=== PATIENT | female | born 1970 | race Caucasian/White ===

== ENCOUNTER 2025-01-24 12:47 | Outpatient (CLI) | payer OTHER, SELFPAY ==
--- OUTSIDE RECORDS SUMMARY | 2024-12-06 17:34 | XMS_ITS | Encounter Summary ---
Author Organization [facility] Address [address] [place] [id number] Care Team Providers Care Behavioral Science Chair Name Role Phone Karlo Lujan MD Primary Care Provider [phone] Reason for Visit * Reason Comments Foot Swelling Encounter Details Date Type Department Care Team (Late st Contact Info) Description 12/06/2024 5:34 PM EDT - 12/06/2024 8:53 PM EDT Emergency [facility] [address] [place] [address] Cash Paez MD [address] COUNT INCLUDES THE [facility] [place] [address] Olecranon bursitis of right elbow (Primary Dx); Cellulitis of right foot Discharge Disposition: Home or Self Care Social History Tobacco Use Types Packs/Day Years Used Date Smoking Tobacco: Never Smokeless Tobacco: Never Alcohol Use Standard Drinks/Week Comments Yes 1 (1 standard drink = 0.6 oz pur e alcohol) SOCIAL [facility] Utilities Answer Date Recorded In the past 12 months has [employer], gas, oil, or water [employer] threatened to shut off services in your home? No 12/09/2023 AUDIT-C Answer Date Recorded Q1: How often do you have a drink containing alcohol? Never 12/08/2023 Q2: How many drinks containi ng alcohol do you have on a typical day when you are drinking? Patient does not drink Q3: How often do you have si x or more drinks on one occasion? Never 12/08/2023 Overall Financial Resource Strain (CARDIA) Answe r Date Recorded How hard is it for you to pa y for the very basics like food, housing, medical care, and heating? Not hard at all 12/09/2023 [facility] Occupat ional Health - Occupational Stress Questionnaire Answer Date Recorded Do you feel stress - tense, restless, nervous, or anxious, or unable to sleep at night because your mind is troubled all the time - these days? Only a little 12/09/2023 Exercise Vital Sign Answer Date Recorde d On average, how many days pe r week do you engage in moderate to strenuous exercise (like a brisk walk)? 3 days 12/09/2023 On average, how many minutes do you engage in exercise at this level? 30 min 12/09/2023 Hunger Vital Sign Answer Date Recorded Within the past 12 months, y ou worried that your food would run out before you got the money to buy more. Never true 12/09/19 24 Within the past 12 months, t he food you bought just didn't last and you didn't have money to get more. Never true 12/09/2023 PRAPARE - Transportation Answer Date Re corded In the past 12 months, has l ack of transportation kept you from medical appointments or from getting medications? No 11/17 In the past 12 months, has l ack of transportation kept you from meetings, work, or from getting things needed for daily living? No 12/09/2023 Abuse Screen Answer Date Recorded Feels Unsafe at Home or Work/School no 12/06/2024 Feels Threatened by Someone no 11/17 Does Anyone Try to Keep You From Having Contact with Others or Doing Things Outside Your Home? no 12/06/2024 Physical Signs of Abuse Present no 12/06/2024 Housing Stability Answer Date Recorded Current Living Arrangements home 11/17 Potentially Unsafe Housing Conditions none 12/09/2023 Family and Community Support Answer Yemi e Recorded If for any reason you need h elp with day-to-day activities such as bathing, preparing meals, shopping, managing finances, etc., do you get the help you need? I don't need any help 12/09/2023 How often do you feel lonely or isolated from those around you? Never 12/09/2023 Employment Answer Date Recorded Do you want help finding or keeping work or a job? I do not need or want help 12/09/2023 Disabilities Answer Date Recorded Difficulty Concentrating, Remembering or Making Decisions no 12/08/2023 Difficulty Managing Errands Independently no 12/08/2023 Education Answer Date Recorded Do you want help with school or training? For example, starting or completing job training or getting a high school diploma, GED or equivalent No 12/09/2023 Preferred Language [place] 12/09/2023 PHQ-2 Answer Date Recorded Patient Health Questionnaire-2 Score 1 07/20/2024 Sex and Gender Information Value Date Recorded Sex Assigned at Male 10/14/2024 7:51 PM EDT Legal Sex Male 10:31 AM EDT Gender Identity Not on file Sexual Orientation Straight 10/14/2024 7: 51 PM EDT documented as of this encounter Last Filed Vital Signs Vital Sign Reading Time Taken Comments Blood Pressure 117/82 12/06/2024 5:53 PM EDT Pulse 70 12/06/2024 8:00 PM EDT Temperature 36.9 C (98.4 F) 12/06/2024 3:03 PM EDT Respiratory Rate 16 12/06/2024 5:53 PM EDT Oxygen Saturation 94% 12/06/2024 8:00 PM EDT Inhaled Oxygen Concentration - - Weight 111 kg (245 lb) 12/06/2024 3:03 PM EDT Height 180.3 cm (5' 11 ) 12/06/2024 3:03 PM EDT Body Mass Index 34.17 12/06/2024 3:03 PM EDT documented in this encounter Functional Status * Calculated C-SSRS Risk Score (Lifetime/Recent) Answer Date of Assessment Author No Risk Indicated 12/06/2024 3:05 PM EDT Jace Thomas RN * Orange Suicide Severity Rating Scale (Screener/Recent Self-Report) Question Answer Date of Assessment Author 1. Wish to be (Past 1 Month) No 025 3:05 PM EDT Jace Thomas, RN 2. Non-Specific Active Suici augusto Thoughts (Past 1 Month) No 12/06/2024 3:05 PM EDT Jace Thomas, RN 6. Suicidal Behavior (Lifetime) No 07/21/202 5 3:05 PM EDT Jace Thomas RN documented as of this encounter Discharge Instructions * Discharge Instructions* Cash Paez MD - 12/06/2024 7:16 PM EDT Apply ice to areas of pain. Take antibiotics as prescribed. Follow-up with PCP for recheck in 1 week. * Attachments The following attachments cannot be sent through Care Everywhere. * Elbow Bursitis ([place]) * Cellulitis Adult ([place]) documented in this encounter Medications at Time of Discharge nitroglycerin (NITROSTAT) 0.[address] 1 tablet under the tongue Every 5 (Five) Minutes As Needed for Chest Pain (Systolic BP Greater Than 100). Take no more than 3 doses in 15 minutes. 25 tablet 12 12/16/2023 12:56 PM EDT 12/16/2023 Aspirin Low Dose 81 MG EC tablet TAKE 1 TABLET BY MOUTH DAILY 90 tablet 3 11/29/2024 clopidogrel (PLAVIX) 75 MG tablet Take 1 tablet by mouth Daily. 90 tablet 3 03/08/2024 Evolocumab (Repatha SureClick) solution auto-injector SureClick injection Inject 1 mL under the skin into the appropriate area as directed Every 14 (Fourteen) Days. 6 mL 3 12/09/2024 9:55 AM EDT 09/20/2024 Ferrous Sulfate ER 45 MG tablet controlled-relea se Take 1 tablet by mouth Daily. furosemide (LASIX) 20 MG tablet TAKE 1 TABLET BY MOUTH DAILY 90 tablet 1 10/18/2024 metoprolol tartrate (LOPRESSOR) 25 MG tabletIndication s:Hypertension, essential Take 0.5 tablets by mouth Every 12 (Twelve) Hours. 90 tablet 3 04/21/2024 rosuvastatin (CRESTOR) 40 MG tablet Take 1 tablet by mouth Every Night. 90 tablet 3 03/08/2024 tamsulosin (FLOMAX) 0.4 MG capsule 24 hr capsule 08/11/2024 cephalexin (KEFLEX) 500 MG capsule Take 1 capsule by mouth 4 (Four) Times a Day for 7 days. 28 capsule 12/06/2024 documented as of this encounter ED Notes * Cash Paez MD - 12/06/2024 3:16 PM EDT Subjective History of Present Illness 55-year-old male who presents with a complaint of right elbow pain and swelling to the right forearm and arm and right foot pain and redness. The patient reports that 8 days ago he noticed an area ofswelling over the olecranon of his right arm. The following day he noticed significant swelling andbruising that extended into his right forearm and into the medial aspect of his right arm. That hascontinued to change. His color is over the last 8 days. He reports that he can range his joint normally without any restriction or significant pain. However when he puts pressure directly over the olecranon he does express pain. He denies trauma to that area. He does take accommodation of Plavix and aspirin but does not take any anticoagulation. He also began to have pain to his right foot and now has some swelling and redness over the dorsal distal aspect of his right foot. This developed roughly 2 to 3 days ago. He does admit that he has been outside as it is currently summer and he was recently at a pool alliance party. He does report some other bug bites over his lower extremities and potentially may have had a bug bite to the dorsal right foot. He likewise denies trauma to his right foot. He is able to stand and ambulate without difficulty. He denies fever or chills or other systemic symptoms of infection. No other acute complaints Review of Systems Constitutional: Negative for chills, fatigue and fever. HENT: Negative for congestion, ear pain, postnasal drip, sinus pressure and sore throat. Eyes: Negative for pain, redness and visual disturbance. Respiratory: Negative for cough, chest tightness and shortness of breath. Cardiovascular: Negative for chest pain, palpitations and leg swelling. Gastrointestinal: Negative for abdominal pain, anal bleeding, blood in stool, diarrhea, nausea and vomiting. Endocrine: Negative for polydipsia and polyuria. Genitourinary: Negative for difficulty urinating, dysuria, frequency and urgency. Musculoskeletal: Positive for arthralgias. Negative for back pain and neck pain. Skin: Positive for color change and wound. Negative for pallor and rash. Allergic/Immunologic: Negative for environmental allergies and immunocompromised state. Neurological: Negative for dizziness, weakness and headaches. Hematological: Negative for adenopathy. Psychiatric/Behavioral: Negative for confusion, self-injury and suicidal ideas. The patient is not nervous/anxious. All other systems reviewed and are negative. Past Medical History: Diagnosis Date Arthritis Asthma Benign prostatic hyperplasia Brain concussion 1989???kristine Multiple times hitting my head growing up Colon polyp Coronary artery disease COVID Eating disorder GERD (gastroesophageal reflux disease) 12/11/2023 Heart valve disease Hiatal hernia History of medical problems May 2021 Dizziness/Vertigo HL (hearing loss) Hypertension, essential 01/15/2024 Low back pain Lumbosacral disc disease [id number] Myocardial infarction 12/08/2023 Obesity Sleep apnea Allergies Allergen Reactions Azithromycin Rash and Other (See Comments) Past Surgical History: Procedure Laterality Date APPENDECTOMY 2006 BACK SURGERY CARDIAC CATHETERIZATION N/A 12/08/2023 Procedure: Left Heart Cath; Surgeon: Martin Mon IV, MD; Location: [facility]; Service: Cardiovascular; Laterality: N/A; CARDIAC CATHETERIZATION N/A 12/08/2023 Procedure: Optical Coherence Tomography; Surgeon: Martin Mon IV, MD; Location: [facility]; Service: Cardiovascular; Laterality: N/A; CARDIAC CATHETERIZATION N/A 12/08/2023 Procedure: Stent MAYKEL coronary; Surgeon: Martin Mon IV, MD; Location: [facility]; Service: Cardiovascular; Laterality: N/A; CARDIAC SURGERY COLONOSCOPY CORONARY ARTERY BYPASS GRAFT N/A 12/10/2023 Procedure: MEDIAN STERNOTOMY, CORONARY ARTERY BYPASS GRAFTING X 3 UTILIZING THE LEFT INTERNAL MAMMARY ARTERY, ENDOSCOPIC VEIN HARVEST OF THE RIGHT GREATER SAPHENOUS VEIN; Surgeon: Tunde Skelton MD; Location: [facility] OR; Service: Cardiothoracic; Laterality: N/A; CORONARY STENT PLACEMENT KNEE SURGERY Right 1989 [place] INJECTION Family History Problem Relation Age of Onset No Known Problems Mother COPD Father Post-traumatic stress disorder Brother Arthritis Brother Breast cancer Maternal Grandmother Cancer Maternal Grandmother Breast Cancer Emphysema Maternal Grandfather Heart attack Maternal Grandfather Heart disease Maternal Grandfather Cancer Paternal Grandmother No Known Problems Paternal Grandfather Asthma Son Social History Socioeconomic History Marital status: Number of children: 2 Tobacco Use Smoking status: Never Smokeless tobacco: Never Vaping Use Vaping status: Never Used Substance and Sexual Activity Alcohol use: Yes Alcohol/week: 1.0 standard drink of alcohol Types: 1 Drinks containing 0.5 oz of alcohol per week Comment: SOCIAL Drug use: No Sexual activity: Not Currently Partners: Female Comment: had Hysterectomy Objective Physical Exam Vitals and nursing note reviewed. Constitutional: General: He is not in acute distress. Appearance: Normal appearance. He is well-developed. He is not toxic-appearing or diaphoretic. HENT: Head: Normocephalic and atraumatic. Right Ear: External ear normal. Left Ear: External ear normal. Nose: Nose normal. Eyes: General: Lids are normal. Pupils: Pupils are equal, round, and reactive to light. Neck: Trachea: No tracheal deviation. Cardiovascular: Rate and Rhythm: Normal rate and regular rhythm. Pulses: No decreased pulses. Heart sounds: Normal heart sounds. No murmur heard. No friction rub. No gallop. Pulmonary: Effort: Pulmonary effort is normal. No respiratory distress. Breath sounds: Normal breath sounds. No decreased breath sounds, wheezing, rhonchi or rales. Abdominal: General: Bowel sounds are normal. Palpations: Abdomen is soft. Tenderness: There is no abdominal tenderness. There is no guarding or rebound. Musculoskeletal: General: No deformity. Normal range of motion. Right elbow: Swelling present. Tenderness present. Cervical back: Normal range of motion and neck supple. Right foot: Swelling and tenderness present. No bony tenderness. Comments: Mild tenderness over the olecranon bursa itself. No redness, no increased skin warmth. There swelling with region of various colors along the medial right forearm and medial right arm. No erythema, no signs of cellulitis or secondary infection. Swelling mild redness and mild warmth to the dorsal right foot. No bony deformity or focal bony pain. Normal pulses of the posterior tibial and dorsalis pedis artery of the right foot. Lymphadenopathy: Cervical: No cervical adenopathy. Skin: General: Skin is warm and dry. Findings: No rash. Neurological: Mental Status: He is alert and oriented to person, place, and time. Cranial Nerves: No cranial nerve deficit. Sensory: No sensory deficit. Psychiatric: Speech: Speech normal. Behavior: Behavior normal. Thought Content: Thought content normal. Judgment: Judgment normal. Procedures ED Course Medical Decision Making Differential includes olecranon bursitis, septic bursitis, right foot insect bite, cellulitis, other unspecified etiology. Labs show normal white count and H&H, normal kidney function, normal D-dimer effectively rulingout DVT or PE. X-ray of the right elbow acute myself is negative for acute fracture or dislocation. X-ray of the right foot independently interpreted by me is negative for acute fracture. The patient will be advised to apply ice to both the right foot and the right elbow. Discharged with a course antibiotics for coverage of possible cellulitis secondary to possible insect bite on the right foot. Advised to follow-up with primary care physician for recheck in 1 week and return to the ER with any further concern. Problems Addressed: Cellulitis of right foot: complicated acute illness or injury with systemic symptoms Olecranon bursitis of right elbow: complicated acute illness or injury with systemic symptoms Amount and/or Complexity of Data Reviewed External Data Reviewed: labs and radiology. Labs: ordered. Decision-making details documented in ED Course. Radiology: ordered and independent interpretation performed. Decision-making details documented in ED Course. Risk Prescription drug management. Final diagnoses: Olecranon bursitis of right elbow Cellulitis of right foot ED Disposition ED Disposition ED Disposition Discharge Condition Stable Comment -- Karlo Lujan MD [address] [place] [address] In 1 week Medication List New Prescriptions cephalexin 500 MG capsule Commonly known as: KEFLEX Take 1 capsule by mouth 4 (Four) Times a Day for 7 days. Where to Get Your Medications These medications were sent to [facility] [id number] - [place], [place] - [address] [facility] [address] - [phone] - [phone] FX [address] [facility] [place] [facility] [id number] cephalexin 500 MG capsule Cash Paez MD 12/07/24 1340 documented in this encounter Plan of Treatment Upcoming Encounters Date Type Department Care Team (Late st Contact Info) Description 02/03/2025 1:30 PM EDT Office Visit [facility] [address] [place] [address] Aracelis Evans, DO [address] [facility] Strong [id number] 06/06/2025 3:15 PM EST Office Visit [facility] [address] [facility] [address] Tunde Dodd MD [address] [facility] [address] [place] [address] documented as of this encounter Goals Goal Patient Goal Type Associated Problems Recent Progress Patient-Stated? Author Specialty Pharmacy General Goal General No Su Vital, PharmD Note: LDL Goal < 50 mg/dL Lab Results Component Value Date LDL 60 07/20/2024 LDL 131 (H) 12/08/2023 documented as of this encounter Procedures Procedure Name Priority Date/Time Associated Diagnosis Comments CBC WITH AUTO DIFFERENTIAL STAT 12/06/2024 5:51 PM EDT APTT STAT 12/06/2024 5:51 PM EDT PROTIME-INR STAT 12/06/2024 5:51 PM EDT D-DIMER, QUANTITATIVE STAT 12/06/2024 5:51 PM EDT CBC AND DIFFERENTIAL STAT 12/06/2024 5:51 PM EDT COMPREHENSIVE METABOLIC PANEL STAT 12/06/2024 5:51 PM EDT XR ELBOW 3+ VW RIGHT STAT 12/06/2024 3:42 PM EDT XR FOOT 3+ VW RIGHT STAT 12/06/2024 3 :41 PM EDT documented in this encounter Results * (ABNORMAL) aPTT (12/06/2024 5:51 PM EDT) PTT 32.2(L) 60.0 - 90.0 seconds 12/06/2024 6:29 PM EDT [facility] Blood Venipuncture / Unknown 12/06/2024 5:51 PM EDT 12/06/2024 6:03 PM EDT Narrative [facility] - 12/06/2024 6:29 PM EDT PTT = The equivalent PTT values for the therapeutic range of heparin levels at 0.3 to 0.5 U/ml are 60 to 70 seconds. Cash Paez MD LAB BLOOD ORDERABLES Lynda l Result Performing Organization Address City/[facility]/ZIP Co de Phone Number [facility]
[address] [place] [address], * Protime-INR (12/06/2024 5:51 PM EDT) Protime 13.9 12.2 - 15.3 Seconds 12/06/2024 6:29 PM EDT [facility] INR 1.01 0.89 - 1.12 12/06/2024 6:29 PM EDT [facility] Blood Venipuncture / Unknown 12/06/2024 5:51 PM EDT 12/06/2024 6:03 PM EDT Cash Paez MD LAB BLOOD ORDERABLES Lynda l Result [facility]
[address] [place] [address], * (ABNORMAL) CBC Auto Differential (12/06/2024 5:51 PM EDT) WBC 5.31 3.40 - 10.80 10*3/mm3 12/06/2024 6:09 PM EDT [facility] RBC 5.13 4.14 - 5.80 10*6/mm3 12/06/2024 6:09 PM EDT [facility] Hemoglobin 14.3 13.0 - 17.7 g/dL 12/06/2024 6:09 PM EDT [facility] Hematocrit 43.4 37.5 - 51.0 % 12/06/2024 6:09 PM EDT [facility] MCV 84.6 79.0 - 97.0 fL 12/06/2024 6:09 PM EDT [facility] MCH 27.9 26.6 - 33.0 pg 12/06/2024 6:09 PM EDT [facility] MCHC 32.9 31.5 - 35.7 g/dL 12/06/2024 6:09 PM EDT [facility] RDW 14.9 12.3 - 15.4 % 12/06/2024 6:09 PM EDT [facility] RDW-SD 45.5 37.0 - 54.0 fl 12/06[facility]24 [facility] MPV 10.2 6.0 - 12.0 fL 12/06/2024 6:09 PM EDT [facility] Platelets 228 140 - 450 10*3/mm3 12/06/2024 6:09 PM EDT [facility] Neutrophil % 63.2 42.7 - 76.0 % 12/06/2024 6:09 PM EDT [facility] Lymphocyte % 22.2 19.6 - 45.3 % 12/06/2024 6:09 PM EDT [facility] Monocyte % 10.2 5.0 - 12.0 % 12/06/2024 6:09 PM EDT [facility] Eosinophil % 3.2 0.3 - 6.2 % 12/06/2024 6:09 PM EDT [facility] Basophil % 0.6 0.0 - 1.5 % 12/06/2024 6:09 PM EDT [facility] Immature Grans % 0.6(H) 0.0 - 0.5 % 12/06/2024 6:09 PM EDT [facility] Neutrophils, Absolute 3.36 1.70 - 7.00 10*3/mm3 12/06/2024 6:09 PM EDT [facility] Lymphocytes, Absolute 1.18 0.70 - 3.10 10*3/mm3 12/06/2024 6:09 PM EDT [facility] Monocytes, Absolute 0.54 0.10 - 0.90 10*3/mm3 12/06/2024 6:09 PM EDT [facility] Eosinophils, Absolute 0.17 0.00 - 0.40 10*3/mm3 12/06/2024 6:09 PM EDT [facility] Basophils, Absolute 0.03 0.00 - 0.20 10*3/mm3 12/06/2024 6:09 PM EDT [facility] Immature Grans, Absolute 0.03 0.00 - 0.05 10*3/mm3 12/06/2024 6:09 PM EDT [facility] nRBC 0.0 0.0 - 0.2 /100 WBC 12/06/2024 6:09 PM EDT [facility] Blood Venipuncture / Unknown 12/06/2024 5:51 PM EDT 12/06/2024 6:02 PM EDT Venukaiser hayward King Paez MD LAB BLOOD ORDERABLES Lynda l Result [facility]
[address] [place] [address], * D-dimer, Quantitative (12/06/2024 5:51 PM EDT) [facility] D-Dimer, Quantitative 0.31 0.00 - 0.52 MCGFEU/mL 12/06/2024 6:29 PM EDT [facility] Blood Venipuncture / Unknown 12/06/2024 5:51 PM EDT 12/06/2024 6:03 PM EDT Narrative [facility] - 12/06/2024 6:29 PM EDT According to the assay production mechanic's published package insert, a normal (<0.50 MCGFEU/mL) D-dimer result in conjunction with a non-high clinical probability assessment, excludes deep vein thrombosis (DVT) and pulmonary embolism (PE) with high sensitivity. D-dimer values increase with age and this can make VTE exclusion of an older population difficult. To address this, the [employer], based on best available evidence and recent guidelines, recommends that clinicians use age-adjusted D-dimer thresholds in patients greater than 50 years of age with: a) a low probability of PE who do not meet all Pulmonary Embolism Rule Out Criteria, or b) in those with intermediate probability of PE. The formula for an age-adjusted D-dimer cut-off is age/100 . For example, a 60 year old patient would have an age-adjusted cut-off of 0.60 MCGFEU/mL and an 80 year old 0.80 MCGFEU/mL. Cash Paez MD LAB BLOOD ORDERABLES Lynda pinedo Result [facility]
[address] [phone] * (ABNORMAL) Comprehensive Metabolic Panel (12/06/2024 5:51 PM EDT) Glucose 113(H) 65 - 99 mg/dL 12/06/2024 6:29 PM EDT [facility] BUN 13.2 6.0 - 20.0 mg/dL 12/06/2024 6:29 PM EDT [facility] Creatinine 1.10 0.76 - 1.27 mg/dL 12/06/2024 6:29 PM EDT [facility] Sodium 140 136 - 145 mmol/L 12/06/2024 6:29 PM EDT [facility] Potassium 3.7 3.5 - 5.2 mmol/L 12/06/2024 6:29 PM EDT [facility] Chloride 103 98 - 107 mmol/L 12/06/2024 6:29 PM EDT [facility] CO2 26.1 22.0 - 29.0 mmol/L 12/06/2024 6:29 PM EDT [facility] Calcium 9.0 8.6 - 10.5 mg/dL 12/06/2024 6:29 PM EDT [facility] Total Protein 7.2 6.0 - 8.5 g/dL 12/06/2024 6:29 PM EDT [facility] Albumin 4.4 3.5 - 5.2 g/dL 12/06/2024 6:29 PM EDT [facility] ALT (SGPT) 24 1 - 41 U/L 12/06/2024 6:29 PM EDT [facility] AST (SGOT) 24 1 - 40 U/L 12/06/2024 6:29 PM EDT [facility] Alkaline Phosphatase 106 39 - 117 U/L 12/06/2024 6:29 PM EDT [facility] Total Bilirubin 1.0 0.0 - 1.2 mg/dL 12/06/2024 6:29 PM EDT [facility] Globulin 2.8 gm/dL 12/06/2024 6:29 PM EDT [facility] Comment:Calculated Result A/G Ratio 1.6 g/dL 12/06/2024 6:29 PM T [facility] BUN/Creatinine Ratio 12.0 7.0 - 25.0 12/06/2024 6:29 PM T [facility] Anion Gap 10.9 5.0 - 15.0 mmol/L 12/06/2024 6:29 PM T [facility] eGFR 80.8 >60.0 mL/min/1.7 3 12/06/2024 6:29 PM T [facility] Blood Venipuncture / Unknown 12/06/2024 5:51 PM EDT 12/06/2024 6:03 PM EDT [facility] - 12/06/2024 6:29 PM EDT GFR Categories in Chronic Kidney Disease (CKD) GFR Category GFR (mL/min/1.73) Interpretation G1 90 or greater Normal or high (1) G2 60-89 Mild decrease (1) G3a 45-59 Mild to moderate decrease G3b 30-44 Moderate to severe decrease G4 15-29 Severe decrease G5 14 or less Kidney failure (1)In the absence of evidence of kidney disease, neither GFR category G1 or G2 fulfill the criteria for CKD. eGFR calculation 2020 CKD-EPI creatinine equation, which does not include race as a factor Cash Paez MD LAB BLOOD ORDERABLES Lynda khris Result [facility]
[address] [place] [address], * XR Elbow 3+ View Right (12/06/2024 3:42 PM EDT) Anatomical Region Laterality Modality Upper Extremities, Elbow Right Radiogr aphic Imaging 12/06/2024 3:44 PM EDT Impressions 12/06/2024 3:50 PM EDT 1. Dorsal soft tissue swelling of the foot but no visible underlying bony trauma. If there is clinical concern for occult fracture or significant internal derangement, foot MRI could be considered. 2. Small superficial calcification or possibly skin foreign body of the great toe as noted. RIGHT ELBOW: Bones of the right elbow joint appear anatomically aligned and intact. Joint spaces are well-maintained. No fracture, avulsion or foreign body is seen. No plain film evidence of effusion is identified. Although somewhat subjective, the lateral image suggests increasingly dense and thickened soft tissues dorsal to the olecranon, with no other visible associated abnormality. IMPRESSION: 1. No evidence of acute or healing bony trauma of the right elbow. No visible effusion. 2. Increased density and thickened appearance of the soft tissues dorsal to the elbow, potentially bruising or edema. Please correlate with patient's symptoms. Electronically Signed: Buster Hernandez MD 12/06/2024 3:50 PM EDT Workstation ID: [id number] Narrative 12/06/2024 3:50 PM EDT XR FOOT 3+ VW RIGHT, XR ELBOW 3+ VW RIGHT Date of Exam: 12/06/2024 3:15 PM EDT Indication: right foot pain Comparison: None available. Findings: History indicates overuse playing volleyball. Persistent bruising and swelling since November 27. RIGHT FOOT: Lateral view appears to show some dorsal soft tissue swelling of the distal forefoot with no apparent foreign body or soft tissue air. Underlying bony structures appear anatomically aligned and intact. In particular, no evidence of metatarsal fracture or changes suggestive of stress fracture are seen. A punctate density seen on the skin of the tip of the great toe may be external to the patient or may represent a small superficial calcification of the distal nailbed. Procedure Note Buster Hernandez MD - 12/06/2024 XR FOOT 3+ VW RIGHT, XR ELBOW 3+ VW RIGHT Date of Exam: 12/06/2024 3:15 PM EDT Indication: right foot pain Comparison: None available. Findings: History indicates overuse playing volleyball. Persistent bruising andswelling since November 27. RIGHT FOOT: Lateral view appears to show some dorsal soft tissue swellingof the distal forefoot with no apparent foreign body or soft tissue air.Underlying bony structures appear anatomically aligned and intact. Inparticular, no evidence of metatarsal fracture or changes suggestive of stress fracture are seen. A punctatedensity seen on the skin of the tip of the great toe may be external tothe patient or may represent a small superficial calcification of thedistal nailbed. IMPRESSION: 1. Dorsal soft tissue swelling of the foot but no visible underlying bonytrauma. If there is clinical concern for occult fracture or significantinternal derangement, foot MRI could be considered. 2. Small superficial calcification or possibly skin foreign body of thegreat toe as noted. RIGHT ELBOW: Bones of the right elbow joint appear anatomically alignedand intact. Joint spaces are well-maintained. No fracture, avulsion orforeign body is seen. No plain film evidence of effusion is identified.Although somewhat subjective, the lateral image suggests increasingly dense and thickened soft tissuesdorsal to the olecranon, with no other visible associated abnormality. IMPRESSION: 1. No evidence of acute or healing bony trauma of the right elbow. Novisible effusion. 2. Increased density and thickened appearance of the soft tissues dorsalto the elbow, potentially bruising or edema. Please correlate withpatient's symptoms. Electronically Signed: Buster Hernandez MD 12/06/2024 3:50 PM EDT Workstation ID: [id number] Cash Paez MD IMG DIAGNOSTIC IMAGING OR DERABLES Final Result * XR Foot 3+ View Right (12/06/2024 3:41 PM EDT) Anatomical Region Laterality Modality Lower Extremities, Foot Right Radiogra [facility] 12/06/2024 3:44 PM EDT Impressions 12/06/2024 3:50 PM EDT 1. Dorsal soft tissue swelling of the foot but no visible underlying bony trauma. If there is clinical concern for occult fracture or significant internal derangement, foot MRI could be considered. 2. Small superficial calcification or possibly skin foreign body of the great toe as noted. RIGHT ELBOW: Bones of the right elbow joint appear anatomically aligned and intact. Joint spaces are well-maintained. No fracture, avulsion or foreign body is seen. No plain film evidence of effusion is identified. Although somewhat subjective, the lateral image suggests increasingly dense and thickened soft tissues dorsal to the olecranon, with no other visible associated abnormality. IMPRESSION: 1. No evidence of acute or healing bony trauma of the right elbow. No visible effusion. 2. Increased density and thickened appearance of the soft tissues dorsal to the elbow, potentially bruising or edema. Please correlate with patient's symptoms. Electronically Signed: Buster Hernandez MD 12/06/2024 3:50 PM EDT Workstation ID: [id number] Narrative 12/06/2024 3:50 PM EDT XR FOOT 3+ VW RIGHT, XR ELBOW 3+ VW RIGHT Date of Exam: 12/06/2024 3:15 PM EDT Indication: right foot pain Comparison: None available. Findings: History indicates overuse playing volleyball. Persistent bruising and swelling since November 27. RIGHT FOOT: Lateral view appears to show some dorsal soft tissue swelling of the distal forefoot with no apparent foreign body or soft tissue air. Underlying bony structures appear anatomically aligned and intact. In particular, no evidence of metatarsal fracture or changes suggestive of stress fracture are seen. A punctate density seen on the skin of the tip of the great toe may be external to the patient or may represent a small superficial calcification of the distal nailbed. Procedure Note Buster Hernandez MD - 12/06/2024 XR FOOT 3+ VW RIGHT, XR ELBOW 3+ VW RIGHT Date of Exam: 12/06/2024 3:15 PM EDT Indication: right foot pain Comparison: None available. Findings: History indicates overuse playing volleyball. Persistent bruising andswelling since November 27. RIGHT FOOT: Lateral view appears to show some dorsal soft tissue swellingof the distal forefoot with no apparent foreign body or soft tissue air.Underlying bony structures appear anatomically aligned and intact. Inparticular, no evidence of metatarsal fracture or changes suggestive of stress fracture are seen. A punctatedensity seen on the skin of the tip of the great toe may be external tothe patient or may represent a small superficial calcification of thedistal nailbed. IMPRESSION: 1. Dorsal soft tissue swelling of the foot but no visible underlying bonytrauma. If there is clinical concern for occult fracture or significantinternal derangement, foot MRI could be considered. 2. Small superficial calcification or possibly skin foreign body of thegreat toe as noted. RIGHT ELBOW: Bones of the right elbow joint appear anatomically alignedand intact. Joint spaces are well-maintained. No fracture, avulsion orforeign body is seen. No plain film evidence of effusion is identified.Although somewhat subjective, the lateral image suggests increasingly dense and thickened soft tissuesdorsal to the olecranon, with no other visible associated abnormality. IMPRESSION: 1. No evidence of acute or healing bony trauma of the right elbow. Novisible effusion. 2. Increased density and thickened appearance of the soft tissues dorsalto the elbow, potentially bruising or edema. Please correlate withpatient's symptoms. Electronically Signed: Buster Hernandez MD 12/06/2024 3:50 PM EDT Workstation ID: [id number] Cash Paez MD IMG DIAGNOSTIC IMAGING OR DERABLES Final Result documented in this encounter Visit Diagnoses Diagnosis Olecranon bursitis of right elbow- Primary Cellulitis of right foot documented in this encounter Administered Medications Inactive Administered Medications - up to 3 most recent administrations Medication Order MAR Action Action Date Dose Rate Site sodium chloride 0.9 % flush 10 mL 10 mL, Intravenous, As Needed, Line Care, Starting on 12/06/24 at 1509 documented in this encounter Active and Recently Administered Medications Times are shown in EDT. PRN Medication Order 12/04/2024 12/05/2024 12/06/2024 sodium chloride 0.9 % flush 10 mL(Linked Group 1) 10 mL, Intravenous, As Needed, Line Care, Starting on Fri12/06/24 at 1509 Linked Groups Order Group 1: Insert Peripheral IV (CANCELED) STAT, Once, On Fri12/06/24 at 1510, For 1 occurrence And sodium chloride 0.9 % flush 10 mLJump to med 10 mL, Intravenous, As Needed, Line Care, Starting on Fri12/06/24 at 1509 documented in this encounter Additional Health Concerns Infection Onset Date Last Indicated Resolved Time COVID (History) 04/30/2020 05/18/2020 documented as of this encounter Care Teams Behavioral Science Chair Relationship Specialty Start Date End Date Karlo Lujan MD [address] [place] [address] PCP - General Family Medicine 01/15/24 documented as of this encounter
--- NOTE | 2025-01-24 | CA_ITS ---
APPROVED REPORT EXAM: Comprehensive 2D, Doppler, and color-flow Echocardiogram Inspector Plug Seam: Kathleen Sosa CRT Ht: 5 ft 11 in Wt: 240lbs BSA: 2.28 BP: 120/78 mmHg Indications: CAD, CABG x3 2023 2D Dimensions LA Volume 49.80 mL LA Volume Index 21.40 mL/m2 (M/F) 16-34 M-Mode Dimensions RVDd 3.88 cm (0.9-2.6) LA Diam 3.34 cm (1.9-4.0) LVDd 4.98 cm (3.5-5.7) LVDs 3.69 cm (3.5-5.7) IVSd 1.48 cm (0.6-1.1) PWd 1.22 cm (0.6-1.1) EF (Teich) 50.60% FS 25.90% EDV (Teich) 117.10 mL ESV (Teich) 57.80 mL LV Diastology E Decel Time 180 (160-240 msec) E/A Ratio 1.30 MED A' 10.00 cm/s LAT A' 11.00 cm/s Aortic Valve AO Peak GR. 5.30 mmHg Mitral Valve MV A Velocity 57.0 (40-130 cm/s) E/A Ratio 1.30 Pulmonary Valve PV Peak Velocity 116.0 (50-150 cm/s) Tricuspid Valve TR P. Velocity 256.00 cm/s RAP Estimate 10.00 mmHg RVSP 36.30 mmHg Left Ventricle The left ventricle is normal size. Left ventricular systolic function is normal. The left ventricular ejection fraction is within the normal range. Proximal septal thickening is present. There is normal LV segmental wall motion. The left ventricular diastolic function is normal. LVEF is 55%. Right Ventricle The right ventricle is mildly dilated. The right ventricular systolic function is normal. Atria The left atrium size is normal. The right atrium size is normal. There is no color Doppler evidence of interatrial shunt. Aortic Valve The aortic valve opens well. There is no hemodynamically significant aortic valvular stenosis. Trace aortic regurgitation is present. Mitral Valve The mitral valve is normal in structure. No evidence of mitral valve stenosis. Mild mitral regurgitation is present. Tricuspid Valve The tricuspid valve leaflets are thin and pliable. Mild tricuspid regurgitation. RVSP is 25???30 mmHg. Pulmonic Valve The pulmonary valve is grossly normal in structure. Trace pulmonic valve regurgitation is present. Great Vessels The aortic root is normal in size. IVC is normal in size and collapses >50% with inspiration. Pericardium There is no pericardial effusion. Other Information Study Quality: Fair Conclusion Normal LV systolic function (LVEF 55%). Mild RV dilation with normal RV function. Mild MR, mild TR. Electronically signed by : Chrystal Viera MD 01/25/2025 12:46:31
--- OUTSIDE RECORDS SUMMARY | 2025-01-24 12:53 | XMS_ITS | Encounter Summary ---
[facility] [address] [place] [address] Care Team Providers Care Outside Sales Account Representative Name Role Phone Karlo Lujan MD Primary Care Provider [phone] Encounter Details Date Type Department Care Team (Late st Contact Info) Description 12/08/2024 Telephone [facility] [address] [facility] [address] [place] [address] Meena Kumar, Splitter Tender Social History Tobacco Use Types Packs/Day Years Used Date Smoking Tobacco: Never Smokeless Tobacco: Never Alcohol Use Standard Drinks/Week Comments Yes 1 (1 standard drink = 0.6 oz pur e alcohol) [facility] Utilities Answer Date Recorded In the past 12 months has [employer] electric, gas, oil, or water [employer] threatened to shut off services in your [...] and heating? Not hard at all 12/09/2023 [facility] [place] of Occupat ional Health - Occupational Stress [...] GED or equivalent No 12/09/2023 Preferred Language Yemeni 12/09/2023 PHQ-2 Answer Date Recorded Patient Health Questionnaire-2 Score 1 07/20/2024 Sex and Gender Information Value Date Recorded Sex Assigned at Male 10/14/2024 7:51 PM EDT Legal Sex Male 10:31 AM EDT Gender Identity Not on file Sexual Orientation Straight 10/14/2024 7: 51 PM EDT documented as of this encounter Miscellaneous Notes * Telephone Encounter - Meena Kumar, Splitter Tender - 12/08/2024 12:59 PM EDT Patient returned my call and left a message. I then returned his call with no answer. documented in this encounter Plan of Treatment Upcoming Encounters Date Type Department Care Team (Late st Contact Info) Description 02/03/2025 1:30 PM EDT Office Visit [facility] [address] [facility] [place] [address] Aracelis Evans, [address] [place] [address] 06/06/2025 3:15 PM EST Office Visit [facility] [address] [place] [address] Tunde Dodd MD [address] [address] documented as of this encounter Goals Goal Patient Goal Type Associated Problems Recent Progress Patient-Stated? Author Specialty Pharmacy General Goal General No Su Vital, PharmD Note: LDL Goal < 50 mg/dL Lab Results Component Value Date LDL 60 07/20/2024 LDL 131 (H) 12/08/2023 documented as of this encounter Visit Diagnoses Not on filedocumented in this encounter Additional Health Concerns Infection Onset Date Last Indicated Resolved Time COVID (History) 04/30/2020 05/18/2020 documented as of this encounter Care Teams Outside Sales Account Representative Relationship Specialty Start Date End Date Karlo Lujan MD [address] [place] [address] PCP - General Family Medicine 01/15/24 documented as of this encounter
--- OUTSIDE RECORDS SUMMARY | 2025-01-24 12:53 | XMS_ITS | Encounter Summary ---
[facility] [address] [place] [address] Care Team Providers Care Well Tester Name Role Phone Karlo Lujan MD Primary Care Provider [phone] Encounter Details Date Type Department Care Team (Late st Contact Info) Description 12/09/2024 Telephone [facility] [address] [facility] [address] [place] [address] Meena Kumar, Rodeo Clown Social History Tobacco Use Types Packs/Day Years Used Date Smoking Tobacco: Never Smokeless Tobacco: Never Alcohol Use Standard Drinks/Week Comments Yes 1 (1 standard drink = 0.6 oz pur e alcohol) [facility] Utilities Answer Date Recorded In the past 12 months has [employer] electric, gas, oil, or water [employer] threatened to shut off services in your [...] and heating? Not hard at all 12/09/2023 [facility] [place] of Occupat ional Health - Occupational Stress [...] GED or equivalent No 12/09/2023 Preferred Language Maltese 12/09/2023 PHQ-2 Answer Date Recorded Patient Health Questionnaire-2 Score 1 07/20/2024 Sex and Gender Information Value Date Recorded Sex Assigned at Male 10/14/2024 7:51 PM EDT Legal Sex Male 10:31 AM EDT Gender Identity Not on file Sexual Orientation Straight 10/14/2024 7: 51 PM EDT documented as of this encounter Miscellaneous Notes * Telephone Encounter - Meena Kumar, Rodeo Clown - 12/09/2024 9:08 AM EDT Patient called back to coordinate a delivery refill on Repatha. He would like to get 3 months supply. documented in this encounter Plan of Treatment Upcoming Encounters Date Type Department Care Team (Late st Contact Info) Description 02/03/2025 1:30 PM EDT Office Visit [facility] PRIMARY [facility] [address] [place] [address] Aracelis Evans, DO [address] [place] [address] 06/06/2025 3:15 PM EST Office Visit [facility] [address] [place] [address] Tunde Dodd MD [address] [address] documented as of this encounter [...] documented as of this encounter Care Teams Well Tester Relationship Specialty Start Date End Date Karlo Lujan MD [facility] [place] [address] PCP - General Family Medicine 01/15/24 documented as of this encounter
--- OUTSIDE RECORDS SUMMARY | 2025-01-24 12:53 | XMS_ITS | Clinical Summary ---
Author Organization [facility] Address [address] [place] [id number] Care Team Providers Care Crystal Grinder Name Role Phone Karlo Lujan MD Primary Care Provider [phone] Allergies Active Allergy Reactions Criticality Noted Date Comments Azithromycin Rash,Other (See Comments) Low 07/03/19 19 Medications nitroglycerin (NITROSTAT) 0.[address] 1 tablet under the tongue Every 5 (Five) Minutes As Needed for Chest Pain (Systolic BP Greater Than 100). Take no more than 3 doses in 15 minutes. 25 tablet 12 12/16/2023 12:56 PM EDT 4 Active Ferrous Sulfate ER 45 MG tablet controlled-rele ase Take 1 tablet by mouth Daily. Active clopidogrel (PLAVIX) 75 MG tablet Take 1 tablet by mouth Daily. 90 tablet 3 4 Active rosuvastatin (CRESTOR) 40 MG tablet Take 1 tablet by mouth Every Night. 90 tablet 3 4 Active metoprolol tartrate (LOPRESSOR) 25 MG tabletIndicatio ns:Hypertension , essential Take 0.5 tablets by mouth Every 12 (Twelve) Hours. 90 tablet 3 4 Active Evolocumab (Repatha SureClick) solution auto-injector SureClick injection Inject 1 mL under the skin into the appropriate area as directed Every 14 (Fourteen) Days. 6 mL 3 12/09/2024 9:55 AM EDT 5 Active furosemide (LASIX) 20 MG tablet TAKE 1 TABLET BY MOUTH DAILY 90 tablet 1 5 Active tamsulosin (FLOMAX) 0.4 MG capsule 24 hr capsule Active Aspirin Low Dose 81 MG EC tablet TAKE 1 TABLET BY MOUTH DAILY 90 tablet 3 Active Active Problems Problem Noted Date Diagnosed Date Hx of CABG 04/21/2024 Assessment & Plan (04/21/2024 5:11 PM EST): Well postop. Sliding hiatal hernia 01/21/2024 Hypertension, essential 01/15/2024 Assessment & Plan (10/21/2024 12:14 PM EDT): Borderline elevated, recommend DASH diet. Assessment & Plan (07/20/2024 12:06 PM EST): Stable. Continue current management. Orders: Magnesium; Future Magnesium Assessment & Plan (04/21/2024 5:11 PM EST): Medication refilled. Orders: metoprolol tartrate (LOPRESSOR) 25 MG tablet; Take 0.5 tablets by mouth Every 12 (Twelve) Hours. Iron deficiency anemia 12/13/2023 Assessment & Plan (07/20/2024 12:06 PM EST): Orders: Iron Profile; Future Ferritin; Future Ferritin Iron Profile Hyperlipidemia LDL goal <50 12/08/2023 Assessment & Plan (10/21/2024 12:14 PM EDT): Lipid profile ordered. Orders: Lipid Panel Lipoprotein A (LPA) Assessment & Plan (07/20/2024 12:06 PM EST): Orders: Lipid Panel; Future Lipoprotein A (LPA); Future Lipoprotein A (LPA) Lipid Panel Coronary artery disease 12/08/2023 Overview (12/09/2023): Cardiac catheterization for NSTEMI with ongoing chest pain (12/08/2023): Severe 3-vessel CAD (LAD-diagonal bifurcation, LCx, proximal RCA thrombotic occlusion). Status post PCI of proximal/mid LAD with large caliber MAYKEL (Xience 4 x [address] surgery for revascularization of LAD/diagonal/OM Echo (12/09/2023): LVEF 58%. No significant valvular disease Assessment & Plan (07/20/2024 12:06 PM EST): Lipid profile and lipoprotein a ordered. Follow-up with cardiology pending. Orders: Lipoprotein A (LPA); Future Lipoprotein A (LPA) Assessment & Plan (04/21/2024 5:11 PM EST): Assessment & Plan (01/21/2024 5:08 PM EDT): Managed by cardiology. Status post three-vessel coronary bypass. Doing well at this time. NSTEMI (non-ST elevated myocardial infarction) 1 Overview (12/09/2023): Cardiac catheterization for NSTEMI with ongoing chest pain (12/08/2023): Severe 3-vessel CAD (LAD-diagonal bifurcation, LCx, proximal RCA thrombotic occlusion). Status post PCI of proximal/mid LAD with large caliber MAYKEL (Xience 4 x [address] surgery for revascularization of LAD/diagonal/OM Echo (12/09/2023): LVEF 58%. No significant valvular disease Benign prostatic hyperplasia Assessment & Plan (07/20/2024 12:06 PM EST): Will switch from Flomax to alfuzosin due to concern for contributing to orthostasis. Orders: alfuzosin (UROXATRAL) 10 MG 24 hr tablet; Take 1 tablet by mouth Daily. Assessment & Plan (01/21/2024 5:08 PM EDT): Will continue Flomax. If symptoms persist or worsen, will refer back to urology. Patient has seen urology for this and to ED in the past. Colon polyp Resolved Problems Problem Noted Date Diagnosed Date Resolved Date Abnormal CT scan of lung -pe ripheral scarring/infiltrates likely sequela of prior COVID-19 pneumonia and improving on subsequent imaging 06/2020. 05/19/2020 12/08/2023 Overview (07/06/2020): -Likely sequela of prior COVID-19 pneumonia -Significantly improved on follow-up June 2020 CT scan. Dyspnea on exertion 05/18/2020 12/08/19 24 Overview (08/16/2021): 07/30/21 Stress/Echo: EF 60%, negative stress treadmill echoc ardiogram, negative for ischemia 05/18/20 Echo: EF 61-65%, structurally normal Pneumonia due to 2019-nCoV 05/18/2020 0 12/08/2023 Pneumonia due to COVID-19 virus 04/30/2020 12/08/2023 Acute respiratory failure with hypoxia 04/30/2020 05/18/2020 Elevated transaminase level 04/30/2020 12/08/2023 Encounters Date Type Department Care Team Description 12/09/2024 Telephone [facility] [address] [facility] [address] [place] [address] Meena Kumar, Thermometer Production Worker 12/08/2024 Telephone [facility] [address] [facility] [address] [place] [address] Meena Kumar, Thermometer Production Worker 12/06/2024 5:34 PM EDT - 12/06/2024 8:53 PM EDT Emergency [facility] [address] [place] [id number] Cash Paez MD Olecranon bursitis of right elbow (Primary Dx); Cellulitis of right foot Discharge Disposition: Home or Self Care 12/06/2024 Travel 11/28/2024 Refill [facility] [address] [place] [address] Karlo Lujan MD from Last 3 Months Immunizations Immunization Administration Dates Next Due DTP 01/07/1979, 8,03/30/1973,1972 Fluzone >6mos 04/21/2024 Fluzone (or Fluarix & Flulav al for VFC) >6mos 05/17/2020 Influenza Seasonal Injectable 09/06/2020 Influenza, Unspecified 04/07/2021,03/19/2018 MMR 11/05/1977 Pneumococcal Conjugate 20-Va lent (PCV20) 04/21/2024 Polio, Unspecified 01/07/1979, 8,03/30/1973,1972 Td, Unspecified 02/06/1989 Family History Medical History Relation Name Comments Arthritis Brother Tony Jeong Post-traumatic stress disorder Brother Tony Jeong COPD Father Ziggy Jeong Emphysema Maternal Grandfather Brice Bella Heart attack Maternal Grandfather Brice Bella Heart disease Maternal Grandfather Brice Bella Breast cancer Maternal Grandmother Michelle Shayne Cancer Maternal Grandmother Michelle Avilezs Breast Cancer No Known Problems Mother No Known Problems Paternal Grandfather Cancer Paternal Grandmother No Asthma Son Falguni Zambrano Relation Name Status Comments Brother Tony Jeong Alive Father Ziggy Jeong Maternal Grandfather Brice Bella Alive Maternal Grandmother Michelle Bella Alive Mother Alive Paternal Grandfather Paternal Grandmother No Son Falguni Zambrano Alive Social History Tobacco Use Types Packs/Day Years Used Date Smoking Tobacco: Never Smokeless Tobacco: Never Tobacco Cessation:Counseling Given: No Alcohol Use Standard Drinks/Week Comments Yes 1 (1 standard drink = 0.6 oz pur e alcohol) SOCIAL [facility] Utilities Answer Date Recorded In the past 12 months has [employer] electric, gas, oil, or water [employer] threatened to shut off services in your [...] and heating? Not hard at all 12/09/2023 [facility] [place] of Occupat ional Health - Occupational Stress [...] GED or equivalent No 12/09/2023 Preferred Language Malay 12/09/2023 PHQ-2 Answer Date Recorded Patient Health Questionnaire-2 Score 1 07/20/2024 Sex and Gender Information Value Date Recorded Sex Assigned at Male 10/14/2024 7:51 PM EDT Legal Sex Male 10:31 AM EDT Gender Identity Not on file Sexual Orientation Straight 10/14/2024 7: 51 PM EDT Last Filed Vital Signs Vital Sign Reading [...] Mass Index 34.17 12/06/2024 3:03 PM EDT Plan of Treatment Upcoming Encounters Date Type Department Care Team (Late st Contact Info) Description 02/03/2025 1:30 PM EDT Office Visit [facility] [address] [place] [address] Aracelis Evans DO [address] [place] [address] 06/06/2025 3:15 PM EST Office Visit [facility] [address] [place] [address] Tunde Dodd MD [address] [address] Health Maintenance Due Date Last Done Comments COLOGUARD 2017 COLON CANCER SCREENING 5 YEAR SIGMOIDOSCOPY 2017 COLONOSCOPY 2017 [address] CANCER SCREENING 2017 CT COLONOGRAPHY 2017 FECAL OCCULT BLOOD TEST 2017 FIT Testing (1 year) 2017 ANNUAL PHYSICAL 06/18/2018 COVID-19 Vaccine ( season) 2025 10/04/2020, 09/06/2020 INFLUENZA VACCINE 02/16/2025 04/21/2024, , 09/06/2020, Additional history exists TDAP/TD VACCINES (2 - Tdap) 05/19/2025 02/06/1989 Postponed from 02/07/1989 (Patient Refused) ZOSTER VACCINE (1 of 2) 07/19/2025 Post poned from 2022 (Product Unavailable) LIPID PANEL 07/20/2025 07/20/2024, 12/08/2023 HEPATITIS C SCREENING Completed 05/01/2020 Pneumococcal Vaccine 50+ Completed 04/21/2024 Goals Goal Patient Goal Type Associated Problems Recent Progress Patient-Stated? Author Specialty Pharmacy General Goal General No Su Vital, PharmD Note: LDL Goal < 50 mg/dL Lab Results Component Value Date LDL 60 07/20/2024 LDL 131 (H) 12/08/2023 Medical Devices Implanted Type Area Electrical Cad Designer Device Identifier Shelf Expiration Date Model / Serial / Lot Clipapplr M/ Endo Ligaclip 9 07/24in Sm - [id number] Implanted:Qty : 2 on 12/10/2023 by Tunde Skelton MD at [facility] Implant Right: Leg [employer] J MCS20 / / Kt Hemost Abs Surgifoam Porcn 1gram - [id number] Implanted:Qty : 1 on 12/10/2023 by Tunde Skelton MD at [facility] Implant N/A: Chest [employer] J 1977 / / Stnt Cornry Rx Xience/Skypoi nt Rapdxng 4x48mm - [id number] Implanted:Qty : 1 on 12/08/2023 by Martin Mon IV, MD at [facility] LEON VASCULAR 09/22/2024 [id number] / / [id number] Procedures Procedure Name Priority Date/Time Associated Diagnosis Comments CBC AND DIFFERENTIAL STAT 12/06/2024 5:51 PM EDT APTT STAT 12/06/2024 5:51 PM EDT PROTIME-INR STAT 12/06/2024 5:51 PM EDT CBC WITH AUTO DIFFERENTIAL STAT 12/06/2024 5:51 PM EDT D-DIMER, QUANTITATIVE STAT 12/06/2024 5:51 PM EDT COMPREHENSIVE METABOLIC PANEL STAT 12/06/2024 5:51 PM EDT XR ELBOW 3+ VW RIGHT STAT 12/06/2024 3:42 PM EDT XR FOOT 3+ VW RIGHT STAT 12/06/2024 3 :41 PM EDT LIPID PANEL Routine 07/20/2024 11:57 AM EST Hyperlipidemia LDL goal <50 HEPATITIS PANEL, ACUTE Routine 12:01 AM EST from Last 3 Months or Most Recently Relevant to Health Maintenance Results * (ABNORMAL) CBC Auto Differential (12/06/2024 5:51 PM EDT) Pathologist [facility] WBC 5.31 3.40 - 10.80 10*3/mm3 12/06/2024 6:09 PM EDT [facility] RBC 5.13 4.14 - 5.80 10*6/mm3 12/06/2024 6:09 PM EDT [facility] Hemoglobin 14.3 13.0 - 17.7 g/dL 12/06/2024 6:09 PM EDT [facility] Hematocrit 43.4 37.5 - 51.0 % 12/06/2024 6:09 PM EDT [facility] MCV 84.6 79.0 - 97.0 fL 12/06/2024 6:09 PM EDT [facility] MCH 27.9 26.6 - 33.0 pg 12/06/2024 6:09 PM EDT [facility] MCHC 32.9 31.5 - 35.7 g/dL 12/06/2024 6:09 PM EDT [facility] RDW 14.9 12.3 - 15.4 % 12/06/2024 6:09 PM EDT [facility] RDW-SD 45.5 37.0 - 54.0 fl 12/06/2024 6:09 PM EDT [facility] MPV 10.2 6.0 - 12.0 fL 12/06/2024 6:09 PM EDT [facility] Platelets 228 140 - 450 10*3/mm3 12/06/2024 6:09 PM EDT [facility] Neutrophil % 63.2 42.7 - 76.0 % 12/06/2024 6:09 PM EDT [facility] Lymphocyte % 22.2 19.6 - 45.3 % 12/06/2024 6:09 PM EDT [facility] Monocyte % 10.2 5.0 - 12.0 % 12/06/2024 6:[facility] Eosinophil % 3.2 0.3 - 6.2 % 12/06/2024 6:09 PM EDT [facility] Basophil % 0.6 0.0 - 1.5 % 12/06/2024 6:09 PM EDT [facility] Immature Grans % 0.6(H) 0.0 - 0.5 % 12/06/2024 6:09 PM EDT [facility] Neutrophils, Absolute 3.36 1.70 - 7.00 10*3/mm3 12/06/2024 6:09 PM EDT [facility] Lymphocytes, Absolute 1.18 0.70 - 3.10 10*3/mm3 12/06/2024 6:09 PM EDT [facility] Monocytes, Absolute 0.54 0.10 - 0.90 10*3/mm3 12/06/2024 6:09 PM EDT [facility] Eosinophils, Absolute 0.17 0.00 - 0.40 10*3/mm3 12/06/2024 6:09 PM EDT [facility] Basophils, Absolute 0.03 0.00 - 0.20 10*3/mm3 12/06/2024 6:09 PM EDT [facility] Immature Grans, Absolute 0.03 0.00 - 0.05 10*3/mm3 12/06/2024 6:09 PM EDT [facility] nRBC 0.0 0.0 - 0.2 /100 WBC 12/06/2024 6:09 PM EDT [facility] Blood Venipuncture / Unknown 12/06/2024 5:51 PM EDT 12/06/2024 6:02 PM EDT Cash Paez MD LAB BLOOD ORDERABLES Lynda l Result Performing Organization Address [facility] Co de Phone Number [facility]
[address] [place] [address], [place] [phone] * (ABNORMAL) aPTT (12/06/2024 5:51 PM EDT) PTT 32.2(L) 60.0 - 90.0 seconds 12/06/2024 6:29 PM EDT [facility] Blood Venipuncture / Unknown 12/06/2024 5:51 PM EDT 12/06/2024 6:03 PM EDT Narrative [facility] - 12/06/2024 6:29 PM EDT PTT = The equivalent PTT values for the therapeutic range of heparin levels at 0.3 to 0.5 U/ml are 60 to 70 seconds. Cash Paez MD LAB BLOOD ORDERABLES Lynda l Result Performing Organization Address City/[facility]/ZIP Co de Phone Number [facility]
[address] [place] [address], [place] [phone] * Protime-INR (12/06/2024 5:51 PM EDT) Protime 13.9 12.2 - 15.3 Seconds 12/06/2024 6:29 PM EDT [facility] INR 1.01 0.89 - 1.12 12/06/2024 6:29 PM EDT [facility] Blood Venipuncture / Unknown 12/06/2024 5:51 PM EDT 12/06/2024 6:03 PM EDT Cash Paez MD LAB BLOOD ORDERABLES Lynda pinedo Result [facility]
[address] [place] [address], * D-dimer, Quantitative (12/06/2024 5:51 PM EDT) [facility] D-Dimer, Quantitative 0.31 0.00 - 0.52 MCGFEU/mL 12/06/2024 6:29 PM EDT [facility] Blood Venipuncture / Unknown 12/06/2024 5:51 PM EDT 12/06/2024 6:03 PM EDT Narrative [facility] - 12/06/2024 6:29 PM EDT According to the assay refining still operator's published package insert, a normal (<0.50 MCGFEU/mL) D-dimer result in conjunction with a non-high clinical probability assessment, excludes deep vein thrombosis (DVT) and pulmonary embolism (PE) with high sensitivity. D-dimer values increase with age and this can make VTE exclusion of an older population difficult. To address this, the [employer], based on best available [...] MD LAB BLOOD ORDERABLES Lynda pinedo Result [facility]
[address] [place] [address], * (ABNORMAL) Comprehensive Metabolic Panel (12/06/2024 5:51 PM EDT) [facility] Glucose 113(H) 65 - 99 mg/dL 12/06/2024 6:29 PM EDT [facility] BUN 13.2 6.0 - 20.0 mg/dL 12/06/2024 6:29 PM EDT [facility] Creatinine 1.10 0.76 - 1.27 mg/dL 12/06/2024 6:29 PM EDT [facility] Sodium 140 136 - 145 mmol/L 12/06/2024 6:29 PM EDT [facility] Potassium 3.7 3.5 - 5.2 mmol/L 12/06/2024 6:29 PM EDT [facility] Chloride 103 98 - 107 mmol/L 12/06/2024 6:29 PM EDT [facility] CO2 26.1 22.0 - 29.0 mmol/L 12/06/2024 6:29 PM EDT [facility] Calcium 9.0 8.6 - 10.5 mg/dL 12/06/2024 6:29 PM EDT [facility] Total Protein 7.2 6.0 - 8.5 g/dL 12/06/2024 6:29 PM EDT [facility] Albumin 4.4 3.5 - 5.2 g/dL 12/06/2024 6:29 PM EDT [facility] ALT (SGPT) 24 1 - 41 U/L 12/06/2024 6:29 PM EDT [facility] AST (SGOT) 24 1 - 40 U/L 12/06/2024 6:29 PM EDT [facility] Alkaline Phosphatase 106 39 - 117 U/L 12/06/2024 6:29 PM EDT [facility] Total Bilirubin 1.0 0.0 - 1.2 mg/dL 12/06/2024 6:29 PM EDT [facility] Globulin 2.8 gm/dL 12/06/2024 6:29 PM EDT [facility] Comment:Calculated Result A/G Ratio 1.6 g/dL 12/06/2024 6:29 PM EDT [facility] BUN/Creatinine Ratio 12.0 7.0 - 25.0 12/06/2024 6:29 PM EDT [facility] Anion Gap 10.9 5.0 - 15.0 mmol/L 12/06/2024 6:29 PM EDT [facility] eGFR 80.8 >60.0 mL/min/1.7 3 12/06/2024 6:29 PM EDT [facility] Blood Venipuncture / Unknown 12/06/2024 5:51 PM EDT 12/06/2024 6:03 PM EDT Narrative [facility] - 12/06/2024 6:29 PM EDT GFR [...] does not include race as a factor us Cash Paez MD LAB BLOOD ORDERABLES Lynda pinedo Result [facility]
[address] [place] [address], * XR Elbow 3+ View Right (12/06/2024 [...] MD 12/06/2024 3:50 PM EDT Workstation ID: [id number] Narrative 12/06/2024 3:50 PM EDT XR FOOT [...] MD 12/06/2024 3:50 PM EDT Workstation ID: [id number] Cash Paez MD IMG DIAGNOSTIC IMAGING OR DERABLES Final Result * XR Foot 3+ View Right (12/06/2024 3:41 PM EDT) Anatomical Region Laterality Modality Lower Extremities, Foot Right [facility] 12/06/2024 3:44 PM EDT Impressions 12/06/2024 [...] MD 12/06/2024 3:50 PM EDT Workstation ID: [id number] Narrative 12/06/2024 3:50 PM EDT XR FOOT [...] MD 12/06/2024 3:50 PM EDT Workstation ID: [id number] Cash Paez MD IMG DIAGNOSTIC IMAGING OR DERABLES Final Result * (ABNORMAL) Lipid Panel (07/20/2024 11:57 AM EST) Total Cholesterol 119 100 - 199 mg/dL [facility] Triglycerides 148 0 - 149 mg/dL [facility] HDL Cholesterol 33(L) >39 mg/dL [facility] VLDL Cholesterol Rolo 26 5 - 40 mg/dL [facility] LDL Chol Calc (NIH) 60 0 - 99 mg/dL [facility] Blood 07/20/2024 11:5 7 AM EST 07/20/2024 Comment:Blood Release to [facility] Lucila [facility] - 07/21/2024 9:07 AM EST Performed at: 01 - [address] [id number] Head Of Ict: Nic Anders PhD, Phone: [phone] Karlo Lujan MD LAB BLOOD ORDERABLES Lynda l Result [facility] [address] [place] [address], [facility] [address] [place] [address], * Hepatitis Panel, Acute (05/01/2020 12:01 AM EST) Hepatitis B Surface Ag Non-Reacti ve Non-Reacti ve 05/01/2020 1:03 AM EST [facility] Hep A IgM Non-Reacti ve Non-Reacti ve 05/01/2020 1:03 AM EST [facility] Hep B C IgM Non-Reacti ve Non-Reacti ve 05/01/2020 1:03 AM EST [facility] Hepatitis C Ab Non-Reacti ve Non-Reacti ve 05/01/2020 1:03 AM EST [facility] Blood Line / Unknown 05/01/2020 12 :01 AM EST 05/01/2020 12:15 AM EST [facility] - 05/01/2020 1:03 AM EST Results may be falsely decreased if patient taking Biotin. Alejandra Arambula DO LAB BLOOD ORDERABLES Final Res ult [facility]
[address] [place] [address], from Last 3 Months or Most Recently Relevant to Health Maintenance Additional Health Concerns Infection Onset Date Last Indicated COVID (History) 04/30/2020 05/18/2020 Insurance Advance Directives * CPR (Attempt to Resuscitate) (Latest Code Status on File) Date Activated Date Inactivated Comments 12/10/2023 10:55 AM 12/16/2023 5:42 PM Question Answer Comments Code Status (Patient has no pulse and is not breathing): CPR (Attempt to Resuscitate) Medical Interventions (Patie nt has pulse or is breathing): Full Support * CPR (Attempt to Resuscitate) Date Activated Date Inactivated Comments 12/08/2023 5:10 PM 12/10/2023 10:55 AM Question Answer Comments Code Status (Patient has no pulse and is not breathing): CPR (Attempt to Resuscitate) Medical Interventions (Patie nt has pulse or is breathing): Full Support * CPR (Attempt to Resuscitate) Date Activated Date Inactivated Comments 05/18/2020 3:35 AM 05/19/2020 3:58 PM Question Answer Comments Code Status (Patient has no pulse and is not breathing): CPR (Attempt to Resuscitate) Medical Interventions (Patie nt has pulse or is breathing): Full * CPR (Attempt to Resuscitate) Date Activated Date Inactivated Comments 04/30/2020 11:07 PM 05/06/2020 1:31 PM Question Answer Comments Code Status (Patient has no pulse and is not breathing): CPR (Attempt to Resuscitate) Medical Interventions (Patie nt has pulse or is breathing): Full Level Of Support Discussed With: Patient Care Teams Crystal Grinder Relationship Specialty Start Date End Date Karlo Lujan MD [facility] [place] [address] PCP - General Family Medicine 01/15/24
--- OUTSIDE RECORDS SUMMARY | 2025-01-24 12:53 | XMS_ITS | Encounter Summary ---
Author Organization [facility] Address [address] [place] [id number] Care Team Providers Care Fur Blower Operator Name Role Phone Karlo Lujan MD Primary Care Provider [phone] Encounter Details Date Type Department Care Team (Latest Contact Info) Description 12/06/2024 Travel Social History Tobacco Use Types Packs/Day Years Used Date Smoking Tobacco: Never Smokeless Tobacco: Never Alcohol Use Standard Drinks/Week Comments Yes 1 (1 standard drink = 0.6 oz pur e alcohol) SOCIAL [employer] Utilities Answer Date Recorded In the past 12 months has [employer] electric, gas, oil, or water ice threatened to shut off services in your [...] and heating? Not hard at all 12/09/2023 [facility] [place] of Occupat ional Health - Occupational Stress [...] GED or equivalent No 12/09/2023 Preferred Language Slovak 12/09/2023 PHQ-2 Answer Date Recorded Patient Health Questionnaire-2 Score 1 07/20/2024 Sex and Gender Information Value Date Recorded Sex Assigned at Male 10/14/2024 7:51 PM EDT Legal Sex Male 10:31 AM EDT Gender Identity Not on file Sexual Orientation Straight 10/14/2024 7: 51 PM EDT documented as of this encounter Functional Status * Calculated C-SSRS Risk Score (Lifetime/Recent) Answer Date of Assessment Author No Risk Indicated 12/06/2024 3:05 PM EDT Jace Thomas, RODRI * Bishop Suicide Severity Rating Scale (Screener/Recent Self-Report) Question Answer Date of Assessment Author 1. Wish to be (Past 1 Month) No 025 3:05 PM EDT Jace Thomas, RODRI 2. Non-Specific Active Suici augusto Thoughts (Past 1 Month) No 12/06/2024 3:05 PM EDT Jace Thomas, RODRI 6. Suicidal Behavior (Lifetime) No 5 3:05 PM EDT Jace Thomas, RODRI documented as of this encounter Plan of Treatment Upcoming Encounters Date Type Department Care Team (Late st Contact Info) Description 02/03/2025 1:30 PM EDT Office Visit [facility] [address] [place] [address] Aracelis Evans DO [address] [place] [address] 06/06/2025 3:15 PM EST Office Visit [facility] [address] [place] [address] Tunde Dodd MD [address] [address] documented as of this encounter [...] documented as of this encounter Care Teams Fur Blower Operator Relationship Specialty Start Date End Date Karlo Lujan MD [address] [place] [address] PCP - General Family Medicine 01/15/24 documented as of this encounter
--- OUTSIDE RECORDS SUMMARY | 2025-01-24 12:53 | XMS_ITS | Encounter Summary ---
[facility] Organization [facility] Address [address] [place] [address] Care Team Providers Care Feather Cutting Machine Feeder Name Role Phone Karlo Lujan MD Primary Care Provider [phone] Reason for Visit * Reason Comments Med Refill Encounter Details Date Type Department Care Team (Late st Contact Info) Description 11/28/2024 Refill [facility] [address] [place] [address] [place] [address] Karlo Lujan MD [address] [address] Social History Tobacco Use Types Packs/Day Years Used Date Smoking Tobacco: Never Smokeless Tobacco: Never Alcohol Use Standard Drinks/Week Comments Yes 1 (1 standard drink = 0.6 oz pur e alcohol) [facility]IAL [facility] Utilities Answer Date Recorded In the past 12 months has [employer], gas, oil, or water [employer] threatened to shut off services in your [...] and heating? Not hard at all 12/09/2023 [facility] [place] of Occupat ional Health - Occupational Stress [...] Feels Unsafe at Home or Work/School no 12/08/2023 Feels Threatened by Someone no 11/17 Does Anyone Try to Keep You From Having Contact with Others or Doing Things Outside Your Home? no 12/08/2023 Physical Signs of Abuse Present no 12/08/2023 Housing Stability Answer Date Recorded Current Living [...] GED or equivalent No 12/09/2023 Preferred Language Bolivian 12/09/2023 PHQ-2 Answer Date Recorded Patient Health Questionnaire-2 Score 1 07/20/2024 Sex and Gender Information Value Date Recorded Sex Assigned at Male 10/14/2024 7:51 PM EDT Legal Sex Male 10:31 AM EDT Gender Identity Not on file Sexual Orientation Straight 10/14/2024 7: 51 PM EDT documented as of this encounter Plan of Treatment Upcoming Encounters Date Type Department Care Team (Late st Contact Info) Description 02/03/2025 1:30 PM EDT Office Visit [facility] [address] [place] [address] Aracelis Evans, 4 [facility] [place] [address] 06/06/2025 3:15 PM EST Office Visit [facility] [address] [place] [address] Tunde Dodd MD [address] [address] documented as of this encounter [...] documented as of this encounter Care Teams Feather Cutting Machine Feeder Relationship Specialty Start Date End Date Karlo Lujan MD [address] [place] [address] PCP - General Family Medicine 01/15/24 documented as of this encounter
--- OUTSIDE RECORDS SUMMARY | 2025-01-24 12:53 | XMS_ITS | Encounter Summary ---
[facility] Address [address] [place] [id number] Care Team Providers Care Nursing Assoc Name Role Phone Karlo Lujan MD Primary Care Provider [phone] Encounter Details Date Type Department Care Team (Late st Contact Info) Description 08/11/2024 Results Follow-Up [facility] [address] [place] [address] Tunde Dodd MD [address] [place] [address] Social History Tobacco Use Types Packs/Day Years Used Date Smoking Tobacco: Never Smokeless Tobacco: Never Alcohol Use Standard Drinks/Week Comments Yes 1 (1 standard drink = 0.6 oz pur e alcohol) SOCIAL [facility] Utilities Answer Date Recorded In the past 12 months has [employer], gas, oil, or water company threatened to shut off services in your [...] and heating? Not hard at all 12/09/2023 [facility] [place] of Occupat ional Health - Occupational Stress [...] GED or equivalent No 12/09/2023 Preferred Language Bulgarian 12/09/2023 PHQ-2 Answer Date Recorded Patient Health Questionnaire-2 Score 1 07/20/2024 Sex and Gender Information Value Date Recorded Sex Assigned at Male 10/14/2024 7:51 PM EDT Legal Sex Male 10:31 AM EDT Gender Identity Not on file Sexual Orientation Straight 10/14/2024 7: 51 PM EDT documented as of this encounter Progress Notes * Tunde Dodd MD - 08/11/2024 8:50 AM EDT Please inform the patient of their test results. 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 Unfortunately statins do not lower it, therefore I recommend starting Repatha 140 mg subcu every 2 weeks. Please check with our specialty pharmacy about affordability for this patient. Repeat lipids 3 months after starting Repatha, if they are well-controlled we may decrease his dose of rosuvastatin at that time. Thank you. documented in this encounter Plan of Treatment Upcoming Encounters Date Type Department Care Team (Late st Contact Info) Description 02/03/2025 1:30 PM EDT Office Visit [facility] [address] [place] [address] Aracelis Evans DO [address] [place] [address] 06/06/2025 3:15 PM EST Office Visit [facility] [address] [place] [address] Tunde Dodd MD [address] [address] documented as of this encounter Visit Diagnoses Not on filedocumented in this encounter Additional Health Concerns Infection Onset Date Last Indicated Resolved Time COVID (History) 04/30/2020 05/18/2020 documented as of this encounter Care Teams Nursing Assoc Relationship Specialty Start Date End Date Karlo Lujan MD [address] [place] [address] PCP - General Family Medicine 01/15/24 documented as of this encounter
--- OUTSIDE RECORDS SUMMARY | 2025-01-24 12:53 | XMS_ITS | Patient Health Record ---
Author Organization [address] [place] [address] [place] [address] SURGICAL Address [address] [facility] [address] [place], [place] [id number] Care Team Providers Care Senior Test Analyst Name Role Phone Jeison Mckeon Primary Care Provider Unavailabl e Allergies Allergen (clinical drug ingredient) Drug/Non Drug Allergy documented on EMR Reaction Allergy Type Onset Date Status azithromycin Z Daryl (uncoded) Unknown Allergy A ctive Reason For Referral No Information Immunizations Vaccine Route Administration Date Status Comme nts FLU (Past vaccine of unknown type) Unknown 03/19/2018 A dministered Social History Tobacco Status: Question Answer Notes Patient is a non tobacco user Problems Problem Type SNOMED Code ICD Code Onset Dates Problem Status W/U Status Risk Notes Problem 59330421 Epigastric pain (R10.13) Active confirmed Problem 428341470 History of adenomatous polyp of colon (Z86.010) Active confirmed Plan Of Treatment No Information Insurance Providers Payer Name Payer Address Payer Phone Subscriber Number Group Number Insured Name Patient Relationship to Insured Coverage Start Date Coverage End Date [employer] NON-HMO [address] [place], [place] [phone] [id number] Ciera Zambrano Self - patient is the insured Medical (General) History Medical History History ICD Code Arthritis Colonic polyps Reflux Surgical History Surgery Date(Month/Year) right knee reconstruction appendectomy colonoscopy
--- OUTSIDE RECORDS SUMMARY | 2025-01-24 12:53 | XMS_ITS ---
Author Organization [facility] Address [address] [place] [id number] Care Team Providers Care Electrical Project Engineer Name Role Phone Karlo Lujan MD Primary Care Provider [phone] Cardiology Status:Enrolled (Active) Start date:08/30/2024 Enrollment date:09/20/2024 Enrollment reason:New start at Current support & services provided:Clinical Assessment, Refill Coordination , Benefits Investigation, [facility] Dispensing Linked medications:Evolocumab (Active) Linked problems:Coronary artery disease (Active), Hx of CABG (Active), Hyperlipidemia LDL goal <50 (Active), NSTEMI (non-ST elevated myocardial infarction) (Active) Overview [facility] Continued Care and Services Coordination
== END 2025-01-24 23:59 | disposition home or self-care (01) ==
PROVIDERS: Visit Provider Chiropractor
DX: I08.1 Rheumatic disorders of both mitral and tricuspid valves (principal); I25.10 Atherosclerotic heart disease of native coronary artery without angina pectoris; Z95.1 Presence of aortocoronary bypass graft
CPT/HCPCS: 93306